=== PATIENT | male | born 1950 | race Caucasian/White ===

== ENCOUNTER → 2023-09-05 07:46 | Outpatient (REF) | payer MEDICARE, SELFPAY | LOC: WOUND 07:46 | PROVIDERS: ATTENDING PHYSICIAN Surgery; FAMILY PHYSICIAN Family Medicine | DX: R21 Rash and other nonspecific skin eruption (principal); L24.B3 Irritant contact dermatitis related to fecal or urinary stoma or fistula; Z93.6 Other artificial openings of urinary tract status; Z85.51 Personal history of malignant neoplasm of bladder | CPT/HCPCS: 99204 ==